=== PATIENT | female | born 1950 | race Caucasian/White ===

== ENCOUNTER 2023-01-19 18:52 | Emergency (ER) | payer OTHER ==
[2023-01-19 19:02] VITALS: BP 186/84; PULSE 72; RESP 16; TEMP 98.3; BMI 28.3
[2023-01-19] MEDS ORDERED: DIPHTH,PERTUSS(ACELL),TET 0.5 ML DISP.SYRIN IM ONE ×2 (20:41→20:45)
== END 2023-01-19 22:29 | disposition home or self-care (01) ==
LOC: JER 18:52
PROC: 3E0234Z Introduction of Serum, Toxoid and Vaccine into Muscle, Percutaneous Approach (ICD-10-PCS; principal; 2023-01-19)
PROC: 0HQ1XZZ Repair Face Skin, External Approach (ICD-10-PCS; 2023-01-19)
PROC: 2W3GX1Z Immobilization of Right Thumb using Splint (ICD-10-PCS; 2023-01-19)
DX: S01.81XA Laceration without foreign body of other part of head, initial encounter (principal); M79.645 Pain in left finger(s); M25.532 Pain in left wrist; M79.642 Pain in left hand; W18.49XA Other slipping, tripping and stumbling without falling, initial encounter; Y93.89 Activity, other specified; Y92.009 Unspecified place in unspecified non-institutional (private) residence as the place of occurrence of the external cause
CPT/HCPCS: 12001-25; 29130; 70450-TC; 70486-TC; 72125-TC; 73090-TC-LT-FY; 73110-TC-LT-FY; 73130-TC-LT-FY; 90471; 90715; 99284-25